=== PATIENT | female | born 1940 | race Caucasian/White ===

== ENCOUNTER 2024-06-26 12:32 | Outpatient (REF) | payer MEDICARE, SELFPAY ==
--- NOTE | ~2024-06-26 | US_ITS ---
Procedure: Endovascular ablation of the left greater saphenous vein with VenaSeal HISTORY: Varicose veins INDICATIONS: Symptomatically varicose veins bilateral lower extremity. Symptoms include pain, swelling, PROCEDURE/FINDINGS: Informed consent was obtained following a discussion of the risks and benefits of the procedure with the patient. The patient was placed supine on the ultrasound procedure table. Preliminary ultrasound demonstrates dilated refluxing left greater saphenous vein. A site was marked on the left medial leg . The left leg was sterilely prepped and draped. Following the administration of 1% lidocaine for local anesthesia, the greater saphenous vein was accessed with a 21-gauge micropuncture needle under direct ultrasound guidance. The needle was exchanged for the transitional dilator over a 0.018 guidewire. A 0.035 guidewire was then advanced to the saphenofemoral junction. The VenaSeal sheath was then inserted over the wire and positioned 10 cm from the saphenofemoral junction. VenaSeal glue was then delivered along the length of the greater saphenous vein while retracting the catheter with compression at the saphenofemoral junction to prevent glue from traveling forward. The delivery device was removed and hemostasis was achieved with manual compression. Postprocedure ultrasound demonstrates successful occlusion of the treated veins with widely patent and compressible saphenofemoral junction. Patient tolerated the procedure well without immediate complication. US/US venaseal vein closure IMPRESSION: Successful VenaSeal ablation of the left greater saphenous vein. Follow-up ultrasound in 5-7 days Electronically signed by: Adrian Mayorga MD 06/26/2024 02:25 PM JANEE
[2024-06-26] MEDS: Lidocaine HCl 1 % MPF 5 ML VIAL SUBCUT (14:32)
--- OUTSIDE RECORDS SUMMARY | 2024-06-26 15:21 | XMS_ITS | Clinical Summary ---
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 Name Role Phone Unavailable Primary Care Provider Unavailabl e Encounters Date Type Department Care Team Description 04/16/2024 7:15 PM EST - 04/16/2024 11:59 PM EST Hospital Encounter [facility] MRI [address] [place] [id number] Pain Discharge Disposition: Home or Self Care from Last 3 Months Social History Tobacco Use Types Packs/Day Years Used Date Smoking Tobacco: Never Assessed Comments Unknown Sex and Gender Information Value Date Recorded Sex Assigned at Not on file Legal Sex Female 3:42 PM EDT Gender Identity Not on file Sexual Orientation Not on file Plan of Treatment Health Maintenance Due Date Last Done Comments Zoster Vaccines (1 of 2) 1959 Pneumococcal Vaccine: 50+ Years (2 of 2 - PCV) 02/11/2011 02/11/2010 RSV Immunization Patients 60 + Years Old (1 - 1-dose 75+ series) 2014 DTaP,Tdap,and Td Vaccines (2 - Td or Tdap) 02/12/2020 02/11/2010 COVID-19 Vaccine ( - 2023-2 5 season) 2023 07/06/2021, 09/10/2020, 08/20/2020 Influenza Vaccine (#1) 2023 Depression Screening 02/08/2024 Falls Risk Assessment 02/08/2024 Medicare Annual Wellness Visit 02/08/2024 Osteoporosis Screening (Bone Density Screening) 02/08/2024 Social Influencers of Health Screening 02/08/2024 HIB Vaccines Aged Out No longer eligi ble based on patient's age to complete this topic HPV Vaccines Aged Out No longer eligi ble based on patient's age to complete this topic Hepatitis A Vaccines Aged Out No long er eligible based on patient's age to complete this topic Hepatitis B Vaccines Aged Out No long er eligible based on patient's age to complete this topic IPV Vaccines Aged Out No longer eligi ble based on patient's age to complete this topic MMR Vaccines Aged Out No longer eligi ble based on patient's age to complete this topic Meningococcal ACWY Vaccine Aged Out N o longer eligible based on patient's age to complete this topic Meningococcal B Vacine Aged Out No lo nger eligible based on patient's age to complete this topic RSV Immunization Patients Under 20 months Aged Out No longer eligible b ased on patient's age to complete this topic Varicella Vaccines Aged Out No longer eligible based on patient's age to complete this topic Procedures Procedure Name Priority Date/Time Associated Diagnosis Comments MR LUMBAR SPINE WO CONTRAST Routine 04/16/2024 7:59 PM EST Pain from Last 3 Months Results * MR Lumbar Spine wo Contrast (04/16/2024 7:59 PM EST) Anatomical Region Laterality Modality L-spine, Spine Magnetic Resonan ce 04/16/2024 8:27 PM EST Impressions 04/16/2024 8:27 PM EST 1. Evidence of prior vertebral augmentation at T12-L3. Artifact versus possible subtle acute on chronic compression fractures at T12-L2. 2. Multilevel lumbar spondylosis varying degrees of spinal canal narrowing and foraminal stenoses as described. This document has been electronically signed by: Dajuan Quinteros MD on 04/16/2024 20:27:46 Narrative 04/16/2024 8:27 PM EST EXAM: MR Lumbar Spine Without Intravenous Contrast COMPARISON: No relevant prior studies available. FINDINGS: VERTEBRAE: Diffuse heterogeneous marrow signal with presumed kyphoplasty changes noted at T12, L1, L2 and L3 with associated height loss and compression deformities. Mild marrow edema minimally at T12, L1 and L2. Component of superimposed acute on chronic compression fractures not entirely excluded. Alternatively this may be related to incomplete fat saturation, artifactual. SPINAL CORD: Normal cauda equina nerve roots and conus medullaris. SOFT TISSUES: Scattered large Tarlov cysts. LUNGS AND PLEURAL SPACES: Atelectasis. KIDNEYS AND URETERS: Right-sided renal cysts. Possible left-sided renal cysts. DISCS/SPINAL CANAL/NEURAL FORAMINA: Multilevel facet arthropathy, ligamentum flavum buckling and disc bulges. L1-L2: Mild bilateral foraminal stenoses at L1-L2. No high-grade spinal canal narrowing. L2-L3: Mild bilateral foraminal stenoses at L2-L3. No high-grade spinal canal narrowing. L3-L4: Moderate left and mild right bilateral foraminal stenoses at L3-L4. No high-grade spinal canal narrowing. L4-L5: Mild spinal canal narrowing at L4-L5 with mass effect on the left-sided traversing L5 nerve roots. Mild right and severe left bilateral foraminal stenoses. L5-S1: Moderate bilateral foraminal stenoses at L5-S1. No high-grade spinal canal narrowing. Procedure Note Dajuan Quinteros MD - 04/16/2024 EXAM: MR Lumbar Spine Without Intravenous Contrast COMPARISON: No relevant prior studies available. FINDINGS: VERTEBRAE: Diffuse heterogeneous marrow signal with presumed kyphoplasty changes noted at T12, L1, L2 and L3 with associated height loss and compression deformities. Mild marrow edema minimally at T12, L1 and L2. Component of superimposed acute on chronic compression fractures not entirely excluded. Alternatively this may be related to incomplete fat saturation, artifactual. SPINAL CORD: Normal cauda equina nerve roots and conus medullaris. SOFT TISSUES: Scattered large Tarlov cysts. LUNGS AND PLEURAL SPACES: Atelectasis. KIDNEYS AND URETERS: Right-sided renal cysts. Possible left-sided renal cysts. DISCS/SPINAL CANAL/NEURAL FORAMINA: Multilevel facet arthropathy, ligamentum flavum buckling and discbulges. L1-L2: Mild bilateral foraminal stenoses at L1-L2. No high-grade spinal canal narrowing. L2-L3: Mild bilateral foraminal stenoses at L2-L3. No high-grade spinal canal narrowing. L3-L4: Moderate left and mild right bilateral foraminal stenoses atL3-L4. No high-grade spinal canal narrowing. L4-L5: Mild spinal canal narrowing at L4-L5 with mass effect on the left-sided traversing L5 nerve roots. Mild right and severe leftbilateral foraminal stenoses. L5-S1: Moderate bilateral foraminal stenoses at L5-S1. No high-grade spinal canal narrowing. IMPRESSION: 1. Evidence of prior vertebral augmentation at T12-L3. Artifact versus possible subtle acute on chronic compression fractures at T12-L2. 2. Multilevel lumbar spondylosis varying degrees of spinal canalnarrowing and foraminal stenoses as described. 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
== END 2024-06-26 12:33 | disposition home or self-care (01) ==
LOC: HO.US 12:32
PROVIDERS: PCP Internal Medicine; Visit Provider Student in an Organized Health Care Education/Training Program
DX: I83.812 Varicose veins of left lower extremity with pain (principal); I83.892 Varicose veins of left lower extremity with other complications
CPT/HCPCS: 36482; J2003

== ENCOUNTER → 2024-06-26 12:43 | Outpatient (BNV) | payer MEDICARE, SELFPAY | PROVIDERS: PCP Internal Medicine; Visit Provider Student in an Organized Health Care Education/Training Program | DX: I83.12 Varicose veins of left lower extremity with inflammation (principal) | CPT/HCPCS: 36482 ==

== ENCOUNTER 2024-07-01 12:17 | Outpatient (REF) | payer MEDICARE, SELFPAY ==
--- NOTE | ~2024-07-01 | US_ITS ---
CLINICAL HISTORY: F U LEFT GSV VENASEAL - please include GSV clot distance from SFJ Venous duplex ultrasound left lower extremity Comparison: None Findings: Patient five day post VenaSeal procedure of the greater saphenous vein. Thrombosis is seen in the greater saphenous vein with clot 2 cm from the saphenous femoral junction. No deep venous thrombosis. Impression: Successful endovascular ablation of the left greater saphenous vein with clot 2 cm from the saphenous femoral junction. No deep vein thrombosis. This document has been electronically signed by: Gerson Zaldivar MD on 07/02/2024 11:25:21
--- NOTE | ~2024-07-01 | US_ITS ---
Procedure: Endovascular ablation of the left smaller saphenous vein with VenaSeal HISTORY: Varicose veins INDICATIONS: Symptomatically varicose veins bilateral lower extremity. Symptoms include pain, swelling, PROCEDURE/FINDINGS: Informed consent was obtained following a discussion of the risks and benefits of the procedure with the patient. The patient was placed lateral decubitus on the ultrasound procedure table. Preliminary ultrasound demonstrates dilated refluxing left smaller saphenous vein. A site was marked on the left leg . The left leg was sterilely prepped and draped. Following the administration of 1% lidocaine for local anesthesia, the smaller saphenous vein was accessed with a 21-gauge micropuncture needle under direct ultrasound guidance. The needle was exchanged for the transitional dilator over a 0.018 guidewire. A 0.035 guidewire was then advanced to the saphenofemoral junction. The VenaSeal sheath was then inserted over the wire and positioned 10 cm from the saphenopopliteal junction. VenaSeal glue was then delivered along the length of the smaller saphenous vein while retracting the catheter with compression at the saphenofemoral junction to prevent glue from traveling forward. The delivery device was removed and hemostasis was achieved with manual compression. Postprocedure ultrasound demonstrates successful occlusion of the treated vein Patient tolerated the procedure well without immediate complication. US/US venaseal vein closure IMPRESSION: Successful VenaSeal ablation of the left smaller saphenous vein. Follow-up ultrasound in 5-7 days Electronically signed by: Adrian Mayorga MD 07/01/2024 03:05 PM JANEE
--- OUTSIDE RECORDS SUMMARY | 2024-07-01 14:24 | XMS_ITS | Clinical Summary ---
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
[2024-07-01] MEDS: Lidocaine HCl 1 % MPF 5 ML VIAL SUBCUT (14:37)
== END 2024-07-01 12:18 | disposition home or self-care (01) ==
LOC: HO.US 12:17
PROVIDERS: PCP Internal Medicine; Visit Provider Student in an Organized Health Care Education/Training Program
DX: I83.12 Varicose veins of left lower extremity with inflammation (principal); I83.11 Varicose veins of right lower extremity with inflammation; I82.812 Embolism and thrombosis of superficial veins of left lower extremity; M79.605 Pain in left leg; R60.0 Localized edema
CPT/HCPCS: 36482; 93971; J2003

== ENCOUNTER → 2024-07-01 12:23 | Outpatient (BNV) | payer MEDICARE, SELFPAY | PROVIDERS: PCP Internal Medicine; Visit Provider Student in an Organized Health Care Education/Training Program | DX: I83.12 Varicose veins of left lower extremity with inflammation (principal) | CPT/HCPCS: 36482 ==

== ENCOUNTER 2024-07-08 11:59 | Outpatient (REF) | payer MEDICARE, SELFPAY ==
--- NOTE | ~2024-07-08 | US_ITS ---
EXAMINATION: US TRIPLEX LOWER EXTREMITY, LEFT CLINICAL INFORMATION: Status post Endovascular ablation of left great saphenous vein clot. COMPARISON: July 01, 2024. TECHNIQUE: Color-flow triplex imaging with spectral analysis and compression Doppler were performed on the left lower extremity. FINDINGS: Respiratory variation, normal compression and augmented flow are noted throughout the visualized common femoral vein, superficial femoral vein, profunda femoral vein, popliteal vein and midcalf peroneal and posterior tibial venous segments . There is no Ferro's cyst. US/US venous duplex LE LT IMPRESSION: No acute deep venous thrombosis involving the left lower extremity. Negative for DVT. Electronically signed by: Shyam Quezada MD 07/09/2024 09:18 AM EDT
--- OUTSIDE RECORDS SUMMARY | 2024-07-08 13:41 | XMS_ITS | Clinical Summary ---
Author Organization 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
== END 2024-07-08 12:00 | disposition home or self-care (01) ==
LOC: HO.US 11:59
PROVIDERS: PCP Internal Medicine; Visit Provider Student in an Organized Health Care Education/Training Program
DX: I87.2 Venous insufficiency (chronic) (peripheral) (principal)
CPT/HCPCS: 93971

== ENCOUNTER → 2024-07-08 12:20 | Outpatient (BNV) | payer MEDICARE, SELFPAY | PROVIDERS: PCP Internal Medicine; Visit Provider Radiology Diagnostic Radiology | DX: I87.2 Venous insufficiency (chronic) (peripheral) (principal) | CPT/HCPCS: 93971 ==